=== PATIENT | female | born 1975 | race Caucasian/White ===

== ENCOUNTER 2019-08-18 21:39 | Emergency (ER) | payer OTHER ==
[~2019-08-18] VITALS: Ht 172.7 cm; Wt 99.8 kg
[2019-08-19] MEDS ORDERED: DOLOGESIC-DF 51 EACH PO ×2 (02:11→02:13)
[2019-08-19] MEDS ORDERED: LEVSIN/SL0.125 MG SL (02:12)
== END 2019-08-19 02:21 | disposition home or self-care (01) ==
LOC: ER 21:39
DX: R10.32 Left lower quadrant pain (principal)

== ENCOUNTER 2021-12-05 17:48 | Emergency (ER) | payer OTHER ==
[~2021-12-05] VITALS: Ht 172.7 cm; Wt 99.8 kg
[~2021-12-05 17:48] MED LIST: DOLOGESIC-DF 51 EACH PO; LEVSIN/SL0.125 MG SL
== END 2021-12-05 22:50 | disposition home or self-care (01) ==
LOC: ER 17:48
DX: N93.8 Other specified abnormal uterine and vaginal bleeding (principal)

== ENCOUNTER 2022-03-19 05:25 | Day surgery (SDC) | payer OTHER ==
[~2022-03-19] VITALS: Ht 170.2 cm; Wt 102.1 kg
== END 2022-03-19 16:15 | disposition home or self-care (01) ==
LOC: CIR.AMB 05:25
PROVIDERS: ATTEND Obstetrics & Gynecology
DX: N93.8 Other specified abnormal uterine and vaginal bleeding (principal); F12.90 Cannabis use, unspecified, uncomplicated; F17.210 Nicotine dependence, cigarettes, uncomplicated; Z20.822 Contact with and (suspected) exposure to COVID-19

== ENCOUNTER 2022-04-25 08:30 | Inpatient (IN) | payer OTHER ==
[~2022-04-25] VITALS: Ht 172.7 cm; Wt 104.3 kg
[2022-05-02] MEDS ORDERED: TRAMADOL HCL50 MG PO (06:39)
[2022-05-02] MEDS ORDERED: SIMETHICONE125 M1 PO (06:39)
== END 2022-05-03 11:29 | disposition home or self-care (01) | DRG 743 ==
LOC: ADM 08:30 → EDSTATUS 08:30 → O/R 04-30 05:11 → OB/GYN 04-30 05:11 → SURG 04-30 08:30 → OB/GYN 04-30 09:51 → SURG 04-30 12:45 → OB/GYN 04-30 13:21
PROVIDERS: ADMIT Obstetrics & Gynecology; ATTEND Obstetrics & Gynecology
PROC: 0UT50ZZ Resection of Right Fallopian Tube, Open Approach (ICD-10-PCS; 2022-04-30)
PROC: 0UT90ZZ Resection of Uterus, Open Approach (ICD-10-PCS; principal; 2022-04-30 12:45)
DX: D25.1 Intramural leiomyoma of uterus (principal); D25.2 Subserosal leiomyoma of uterus; N80.03 Adenomyosis of the uterus; N72 Inflammatory disease of cervix uteri; Z20.822 Contact with and (suspected) exposure to COVID-19

== ENCOUNTER 2022-06-10 18:17 | Emergency (ER) | payer OTHER ==
[~2022-06-10] VITALS: Ht 172.7 cm; Wt 104.3 kg
[~2022-06-10 18:17] MED LIST changes: +SIMETHICONE125 M1 PO; +TRAMADOL HCL50 MG PO
== END 2022-06-10 19:39 | disposition home or self-care (01) ==
LOC: ER 18:17
DX: H60.8X3 Other otitis externa, bilateral (principal)

== ENCOUNTER 2024-08-16 13:12 | Emergency (ER) | payer OTHER ==
[~2024-08-16] VITALS: Ht 172.7 cm; Wt 113.4 kg
[2024-08-16] MEDS ORDERED: IPRATROPIUM/ALBUTEROL SULFATE 3 ML AMPUL.NEB IH SCH (15:45)
[2024-08-16] MEDS ORDERED: METHYLPREDNISOLONE SOD SUCC 125 MG VIAL IV ONE (15:45)
[2024-08-16] MEDS ORDERED: CETIRIZINE HCL 5 MG/5 ML ML PO ONE (15:45)
[2024-08-16] MEDS ORDERED: GUAIFENESIN/DEXTROMETHORPHAN 100MG/10ML BLIST.PACK PO ONE (15:45)
[2024-08-16] MEDS ORDERED: IPRATROPIUM/ALBUTEROL SULFATE 3 ML AMPUL.NEB IH ONE (15:48)
[2024-08-16] MEDS ORDERED: GUAIFEN/DEXTROMETHORPHAN/PE 10 ML BLIST.PACK PO ONE (15:49)
[2024-08-16] MEDS ORDERED: METHYLPREDNISOLONE SOD SUCC 125 MG VIAL ONE (15:49)
[2024-08-16 16:12] LABS: BASO % 0.5 % (0.1-1.2); EOS # 0.63 (0.04-0.54); EOS % 10.1 % (0.7-7.0); HEMATOCRIT 40.6 % (34.1-44.9); HEMOGLOBIN 13.1 g/dL (11.2-15.7); LYMPH # 1.85 (1.18-3.74); LYMPH % 29.6 % (19.3-53.1); MEAN CORPUSCULAR HEMOGLOBIN 26.6 pg (25.6-32.2); MONO % 9.6 % (4.7-12.5); NEUT # 3.13 (1.56-6.13); PLATELET COUNT 391 K/uL (163-369); RED BLOOD COUNT 4.93 M/uL (3.93-5.22); RED CELL DISTRIBUTION WIDTH 14.1 % (11.6-14.4)
[2024-08-16] MEDS ORDERED: CETIRIZINE HCL 5MG/5ML BLIST.PACK PO ONE (16:14)
[2024-08-16 16:30] LABS: COVID-19 AG NEGATIVE (NEGATIVE)
[2024-08-16 16:33] LABS: CALCIUM 9.5 mg/dL (8.5-10.1); CREATININE SERUM 1.08 mg/dL (0.55-1.02); GFR 54.15; INFLUENZA A AG NEGATIVE (NEGATIVE); INFLUENZA B AG NEGATIVE (NEGATIVE); POTASSIUM 3.98 mEq/L (3.5-5.1)
[2024-08-16] MEDS ORDERED: PULMICORT1 MG/2 ML IH (17:47)
[2024-08-16] MEDS ORDERED: IPRATROPIU0.2 MG/1 M IH (17:47)
[2024-08-16] MEDS ORDERED: TUSSIN DM 200-118 ML PO (17:47)
[2024-08-16] MEDS ORDERED: ZYRTEC10 MG PO (17:47)
[2024-08-16] MEDS ORDERED: ALBUTEROL1.25 MG/3 IH (17:47)
[2024-08-16] MEDS ORDERED: MONTELUKAST SOD10 MG PO (17:51)
== END 2024-08-16 18:04 | disposition home or self-care (01) ==
LOC: ER 13:17
PROVIDERS: Preventive Medicine Public Health & General Preventive Medicine
DX: J06.9 Acute upper respiratory infection, unspecified (principal); Z20.822 Contact with and (suspected) exposure to COVID-19

== ENCOUNTER 2024-09-07 02:13 | Emergency (ER) | payer OTHER ==
[~2024-09-07] VITALS: Ht 172.7 cm; Wt 112.0 kg
[~2024-09-07 02:13] MED LIST changes: +ALBUTEROL1.25 MG/3 IH; +IPRATROPIU0.2 MG/1 M IH; +MONTELUKAST SOD10 MG PO; +PULMICORT1 MG/2 ML IH; +TUSSIN DM 200-118 ML PO; +ZYRTEC10 MG PO
[2024-09-07] MEDS ORDERED: CLINDAMYCIN PHOSPHATE 150 MG/ML (600mg) IM STA (04:19)
[2024-09-07] MEDS ORDERED: TETANUS & DIPHTHERIA TOX,ADULT 0.5 ML VIAL IM STA (04:19)
== END 2024-09-07 04:27 | disposition home or self-care (01) ==
LOC: ER 02:20
DX: S71.152A Open bite, left thigh, initial encounter (principal); W54.0XXA Bitten by dog, initial encounter; Y93.89 Activity, other specified; Y92.89 Other specified places as the place of occurrence of the external cause; Y99.8 Other external cause status
CPT/HCPCS: 90471; 90714; J1670